=== PATIENT | female | born 1945 | race Two or more races ===

== ENCOUNTER 2018-05-06 10:15 | Outpatient (CLI) | payer OTHER | END 2018-05-06 10:49 | disposition home or self-care (01) | LOC: NUCLEAR 10:15 | DX: I11.9 Hypertensive heart disease without heart failure (principal) ==

== ENCOUNTER → 2020-08-11 14:37 | Outpatient (CLI) | payer OTHER | END | disposition home or self-care (01) | LOC: LAB 10:59 | PROVIDERS: ATTEND Internal Medicine | DX: U07.1 COVID-19 (principal) ==

== ENCOUNTER 2022-04-05 07:03 | Outpatient (CLI) | payer OTHER | END 2022-04-05 07:04 | disposition home or self-care (01) | LOC: LAB 07:03 | PROVIDERS: ATTEND Internal Medicine | DX: D64.9 Anemia, unspecified (principal); E03.8 Other specified hypothyroidism; C80.1 Malignant (primary) neoplasm, unspecified; B19.9 Unspecified viral hepatitis without hepatic coma; J45.998 Other asthma ==

== ENCOUNTER 2022-04-05 07:15 | Outpatient (CLI) | payer OTHER | END 2022-04-05 07:20 | disposition home or self-care (01) | LOC: MRI 07:15 | PROVIDERS: ATTEND Internal Medicine | DX: R10.0 Acute abdomen (principal); C80.1 Malignant (primary) neoplasm, unspecified | CPT/HCPCS: 74176; 74182; Q9965 ==

== ENCOUNTER 2022-10-31 12:36 | Outpatient (CLI) | payer OTHER | END 2022-10-31 12:37 | disposition home or self-care (01) | LOC: LAB 12:36 | PROVIDERS: ATTEND Obstetrics & Gynecology Gynecology | DX: I10 Essential (primary) hypertension (principal); N83.291 Other ovarian cyst, right side; Z12.73 Encounter for screening for malignant neoplasm of ovary ==

== ENCOUNTER 2022-11-02 06:36 | Outpatient (CLI) | payer OTHER | END 2022-11-02 15:18 | disposition home or self-care (01) | LOC: MRI 06:36 | PROVIDERS: ATTEND Internal Medicine Gastroenterology | DX: K86.2 Cyst of pancreas (principal) | CPT/HCPCS: 74183; Q9965 ==

== ENCOUNTER 2023-04-24 06:29 | Outpatient (CLI) | payer OTHER | END 2023-04-24 15:56 | disposition home or self-care (01) | LOC: MRI 06:29 | PROVIDERS: ATTEND Internal Medicine Gastroenterology | DX: K86.2 Cyst of pancreas (principal) | CPT/HCPCS: 74183; Q9965 ==

== ENCOUNTER 2024-11-02 06:42 | Outpatient (CLI) | payer OTHER ==
[2024-11-02 07:34] LABS: EOS # 0.12 (0.04-0.54); EOS % 2.9 % (0.7-7.0); HEMATOCRIT 37.3 % (34.1-44.9); HEMOGLOBIN 12.5 g/dL (11.2-15.7); LYMPH # 2.19 (1.18-3.74); LYMPH % 53.2 % (19.3-53.1); MEAN CORPUSCULAR HEMOGLOBIN 32.5 pg (25.6-32.2); MONO # 0.36 (0.24-0.82); MONO % 8.7 % (4.7-12.5); NEUT # 1.39 (1.56-6.13); NEUT % 33.7 % (34.0-71.1); PLATELET COUNT 226 K/uL (163-369); RED BLOOD COUNT 3.85 M/uL (3.93-5.22); RED CELL DISTRIBUTION WIDTH 12.8 % (11.6-14.4)
[2024-11-02 08:04] LABS: ALBUMIN 3.4 gm/dL (3.4-5.0); BILIRUBIN TOTAL 0.25 mg/dL (0.3-1.2); CALCIUM 10.4 mg/dL (8.5-10.1); CREATININE SERUM 0.61 mg/dL (0.55-1.02); GFR 95.1; POTASSIUM 3.95 mEq/L (3.5-5.1); TOTAL PROTEIN 6.4 gm/dL (6.4-8.2)
== END 2024-11-02 06:48 | disposition home or self-care (01) ==
LOC: LAB 06:42
PROVIDERS: ATTEND Internal Medicine Gastroenterology
DX: K86.2 Cyst of pancreas (principal); K31.7 Polyp of stomach and duodenum; Z86.0100 Personal history of colon polyps, unspecified

== ENCOUNTER → 2024-11-02 | Outpatient (CLI) | payer OTHER | END | disposition home or self-care (01) | LOC: MRI 07:27 | PROVIDERS: ATTEND Internal Medicine Gastroenterology | DX: K86.2 Cyst of pancreas (principal) | CPT/HCPCS: 74183; Q9965 ==